=== PATIENT | male | born 1995 | race African-American/Black ===

== ENCOUNTER 2017-09-08 09:48 | Emergency (ER) | payer SELFPAY ==
[2017-09-08] MEDS ORDERED: Ondansetron ODT TAB* 4 MG SL ONE (10:10)
--- NOTE | 2017-09-08 10:49 | ED ---
Throat Pain/Nasal Congestion - HPI Summary HPI Summary: Patient presents to the ED with CC of feeling like something is in his throat and unless he continues to swallow consistently, feels lightheaded and will vomit. Denies vomiting from his stomach, but endorses regurgitation of saliva from the throat, nausea and sweating. Denies eating anything or food stuck in throat. Last PO intake last evening. Symptoms began 1 hour ago. Denies health problems. Has never had this before. Denies fevers or chills. Has been otherwise feeling well. Denies weakness or abdominal pain. Denies urinary symptoms, ESCOTO. - History of Current Complaint Chief Complaint: EDNauseaVomitDiarrh Time Seen by Provider: 09/08/17 09:50 Hx Obtained From: Patient Onset/Duration: Sudden Onset Associated Signs And Symptoms: Positive: Negative - Epiglottits Risk Factors Epiglottis Risk Factors: Negative - Allergies/Home Medications Allergies/Adverse Reactions: Allergies Allergy/AdvReac Type Severity Reaction Status Date / Time Peanut Oil Allergy Itching Verified 09/08/17 09:51 Shellfish Allergy Allergy Swelling Verified 09/08/17 09:51 Of Face,Lips,& Throat PMH/Surg Hx/FS Hx/Imm Hx Previously Healthy: Yes - Immunization History Hx Pertussis Vaccination: No Immunizations Up to Date: Unable to Obtain/Confirm Infectious Disease History: No Infectious Disease History: Denies: Traveled Outside the [place] in Last 30 Days - Social History Occupation: Unemployed Lives: With Family Alcohol Use: None Hx Substance Use: No Substance Use Type: Reports: None Smoking Status (MU): Smoker, Current Status Unknown Review of Systems Constitutional: Negative Negative: Fever, Chills, Fatigue Eyes: Negative Positive: Other - feeling as something is in his throat (not FB) Cardiovascular: Negative Genitourinary: Negative Positive: no symptoms reported, see HPI Musculoskeletal: Negative Neurological: Negative All Other Systems Reviewed And Are Negative: Yes Physical Exam Triage Information Reviewed: Yes Vital Signs On Initial Exam: Initial Vitals Temp Pulse Resp BP Pulse Ox 99.4 F 113 16 146/71 100 09/08/17 09:49 09/08/17 09:49 09/08/17 09:49 09/08/17 09:49 09/08/17 09:49 Vital Signs Reviewed: Yes Appearance: Positive: Well-Appearing, Well-Nourished Skin: Positive: Warm, Skin Color Reflects Adequate Perfusion Head/Face: Positive: Normal Head/Face Inspection Eyes: Positive: EOMI, KIM, Conjunctiva Clear ENT: Positive: Pharynx normal. Negative: Pharyngeal erythema, TM bulging, Tonsillar swelling, Tonsillar exudate, Hoarse voice, Dental tenderness Neck: Positive: Supple, No Lymphadenopathy Respiratory/Lung Sounds: Positive: Clear to Auscultation, Breath Sounds Present Cardiovascular: Positive: RRR, Pulses are Symmetrical in both Upper and Lower Extremities Musculoskeletal: Positive: Strength/ROM Intact Neurological: Positive: Normal, Sensory/Motor Intact, Alert, Oriented to Person Place, Time, Speech Normal Psychiatric: Positive: Normal, Affect/Mood Appropriate - [place] Coma Scale Coma Scale Total: 15 Diagnostics - Vital Signs Vital Signs Temp Pulse Resp BP Pulse Ox 09/08/17 09:49 99.4 F 113 16 146/71 100 - Laboratory Lab Statement: Any lab studies that have been ordered have been reviewed, and results considered in the medical decision making process. EENT Course/Dx - Course Course Of Treatment: feeling as something is in his throat (not FB). Denies swallowing anything recently. States something "shifted" in his throat about 1 hour ago, and started to have to swallow frequently or feelings of weakness and nausea would arise. This has never happened before. During the course of treatment, patient is sent to xray chest, xray neck and EKG completed. EKG shows sinus tachy at 102. Probable left atrial and ventricular enlargement. IMPRESSION: NO EVIDENCE FOR ACTIVE CARDIOPULMONARY DISEASE. IMPRESSION: NO RADIOPAQUE FOREIGN BODY IS SEEN. Patient is feeling improved and requesting discharge. He is safe for discharge and I have advised he follow up with his PCP regarding his high blood pressure and LVH. - Diagnoses Provider Diagnoses: Foreign body in throat Discharge - Discharge Plan Condition: Stable Disposition: HOME Referrals: No Primary Care Phys,NOPCP [Primary Care Provider] - Additional Instructions: As discussed, establish care with a PCP in the area to evaluate the heart Symptoms from today should subside slowly If any symptoms become worse, or you feel you are unable to swallow - return to the ED. Slowly continue to drink fluids throughout the day and eating something solid like crackers will help. Your EKG, chest xray and neck xray all appear to be normal
--- NOTE | 2017-09-08 11:00 | RAD ---
INDICATION: Chest pain. COMPARISON: There are no prior studies available for comparison. TECHNIQUE: Dual-energy PA and lateral views of the chest were obtained. FINDINGS: The heart is within normal limits in size. Mediastinal and hilar contours appear within normal limits. The lungs are underinflated and clear. No pleural effusion or pneumothorax is seen. There is a mild dorsal lumbar scoliosis convex toward the left in the upper dorsal region, toward the right in the lordosis region and toward the left in the lumbar region. IMPRESSION: NO EVIDENCE FOR ACTIVE CARDIOPULMONARY DISEASE.
--- NOTE | 2017-09-08 11:01 | RAD ---
INDICATION: Foreign body. COMPARISON: There are no prior studies available for comparison. TECHNIQUE: AP and lateral images of the soft tissue of the neck were obtained. FINDINGS: The epiglottis and aryepiglottic folds appear to be within normal limits. The retropharyngeal soft tissues appear normal. The airway appears patent. No radiopaque foreign body is seen. IMPRESSION: NO RADIOPAQUE FOREIGN BODY IS SEEN.
[2017-09-08 11:16] VITALS: BP 120/63
== END 2017-09-08 11:16 | disposition home or self-care (01) ==
LOC: ED 09:48
DX: R09.89 Other specified symptoms and signs involving the circulatory and respiratory systems (principal); T17.298A Other foreign object in pharynx causing other injury, initial encounter; F17.210 Nicotine dependence, cigarettes, uncomplicated; X58.XXXA Exposure to other specified factors, initial encounter; Y93.9 Activity, unspecified; Y92.9 Unspecified place or not applicable
CPT/HCPCS: 70360; 71020; 93005; 99282; A9270-GY

== ENCOUNTER 2018-01-13 03:51 | Emergency (ER) | payer SELFPAY ==
[2018-01-13] MEDS ORDERED: NS 0.9% 1000 ML* 1,000 ML IV ONE (04:11)
[2018-01-13] MEDS ORDERED: levETIRAcetam IV* 1,000 MG in NS 0.9% 100 ML* 100 ML IVPB ONE (04:11)
[2018-01-13 04:31] LABS: ABS Basophils 0 10^3/ul (0-0.2); ABS Eosinophils 0.2 10^3/ul (0-0.6); ABS Lymphocytes 2.4 10^3/ul (1.0-4.8); ABS Monocytes 0.7 10^3/ul (0-0.8); ABS Neutrophils 3.9 10^3/ul (1.5-7.7); ABS Nucleated RBC 0 10^3/ul; Eosinophil % 3.3 % (0-6); Hematocrit 41 % (42-52); Hemoglobin 13.9 g/dl (14.0-18.0); Lymphocyte % 32.7 % (25-47); Mean Corpuscular HGB Conc 34 g/dl (31-36); Mean Corpuscular Hemoglobin 31 pg (27-31); Mean Corpuscular Volume 92 fL (80-94); Mean Platelet Volume 8.2 um3 (7.4-10.4); Nucleated Red Blood Cells % 0; Platelet Count 260 10^3/ul (150-450); Red Cell Distribution Width 14 % (10.5-15); White Blood Count 7.3 10^3/ul (3.5-10.8)
[2018-01-13 04:40] LABS: EGFR Non-African American 78.9 (>60)
[2018-01-13 06:34] LABS: Urine Appearance Clear; Urine Blood Negative (Negative); Urine Color Yellow; Urine Ketones Trace (Negative); Urine Protein 1+(30 mg/dL) (Negative); Urine Specific Gravity 1.015 (1.010-1.030); Urine Urobilinogen Negative (Negative)
[2018-01-13 06:41] VITALS: BP 110/68
--- NOTE | 2018-01-13 06:55 | ED ---
Carmella Gonzalez Gabriel, scribed for Falguni Garrett MD on 01/13/18 at 0414 . 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 The patient rates the pain 0/10 in severity. Patient reports biting of tongue. Patient denies incontinence and decreased sleep. A month ago he had a seizure and was admitted for 2 days but not given seizure medication. The pt is unsure who called the ambulance. - History of Current Complaint Chief Complaint: EDSeizure Stated Complaint: SEIZURE Time Seen by Provider: 01/13/18 03:55 Hx Obtained From: Patient Onset/Duration: Still Present Timing: Constant Onset Severity: Mild Current Severity: None Seizure Severity: Mild Pain Intensity: 0 Pain Scale Used: 0-10 Numeric Syncope Context: Witnessed Associated Signs and Symptoms: Positive: Negative - incontinence, decreased sleep, - Allergy/Home Medications Allergies/Adverse Reactions: Allergies Allergy/AdvReac Type Severity Reaction Status Date / Time MS Peanut Oil [Peanut Oil] Allergy Itching Verified 09/08/17 09:51 MS Shellfish Allergy Allergy Swelling Verified 09/08/17 09:51 [Shellfish Allergy] Of Face,Lips,& Throat PMH/Surg Hx/FS Hx/Imm Hx Cardiovascular History: Denies: Hx Myocardial Infarction, Hx Pacemaker/ICD Respiratory History: Denies: Hx Chronic Obstructive Pulmonary Disease (COPD), Hx Cystic Fibrosis Opthamlomology History: Denies: Hx Cataracts EENT History: Denies: Hx Deafness Neurological History: Reports: Hx Seizures Infectious Disease History: No Infectious Disease History: Denies: Traveled Outside the [place] in Last 30 Days - Family History Known Family History: Positive: Hypertension Negative: Respiratory Disease, Seizure Disorder - Social History Lives: With Family Alcohol Use: None Hx Substance Use: No Substance Use Type: Reports: None Smoking Status (MU): Smoker, Current Status Unknown Review of Systems Constitutional: Negative - decreased sleep, Positive: Other - biting of tongue Gastrointestinal: Negative - incontinence, Neurological: Other - Seizure activity All Other Systems Reviewed And Are Negative: Yes Physical Exam - Summary Physical Exam Summary: Pt was uncooperative for the exam VITAL SIGNS: Reviewed. GENERAL: Patient is a well-developed and nourished male who is lying comfortable in the stretcher. Patient is not in any acute respiratory distress. HEAD AND FACE: No signs of trauma. No ecchymosis, hematomas or skull depressions. No sinus tenderness. EYES: PERRLA, EOMI x 2, No injected conjunctiva, no nystagmus. EARS: Hearing grossly intact. Ear canals and tympanic membranes are within normal limits. MOUTH: there is a 2cm lac of the right side of the tongue NECK: Supple, trachea is midline, no adenopathy, no JVD, no carotid bruit, no c- spine tenderness, neck with full ROM. CHEST: Symmetric, no tenderness at palpation LUNGS: Clear to auscultation bilaterally. No wheezing or crackles. CVS: Regular rate and rhythm, S1 and S2 present, no murmurs or gallops appreciated. ABDOMEN: Soft, non-tender. No signs of distention. No rebound no guarding, and no masses palpated. Bowel sounds are normal. EXTREMITIES: FROM in all major joints, no edema, no cyanosis or clubbing. NEURO: Alert and oriented x 3. No acute neurological deficits. Speech is normal and follows commands. SKIN: Dry and warm GCS 15 Triage Information Reviewed: Yes Vital Signs On Initial Exam: Initial Vitals Temp Pulse Resp BP Pulse Ox 98.5 F 78 20 121/71 98 01/13/18 03:52 01/13/18 03:52 01/13/18 03:52 01/13/18 03:52 01/13/18 03:52 Vital Signs Reviewed: Yes Diagnostics - Vital Signs Vital Signs Temp Pulse Resp BP Pulse Ox 01/13/18 03:52 98.5 F 78 20 121/71 98 - Laboratory Result Diagrams: 01/13/18 04:02 01/13/18 04:02 Lab Statement: Any lab studies that have been ordered have been reviewed, and results considered in the medical decision making process. - CT CT Head CT Interpretation Completed By: Radiologist - normal brain, no acute intracranial abnormality. No hemorrhage. No visible infarct or mass. Osseous structures are intact. ED physician has reviewed this radiology report. - EKG 0405 Cardiac Rate: NL EKG Rhythm: Sinus Rhythm - at 84 bpm EKG Interpretation: Normal axis. Normal interval. No ischemic changes Re-Evaluation - Re-Evaluation First Eval Re-Evaluation Time: 06:01 Comment: I discussed all the test results with the patient and instructed him he is not to drive until cleared by neurology. 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 The patient rates the pain 0/10 in severity. Patient reports biting of tongue. Patient denies incontinence and decreased sleep. A month ago he had a seizure and was admitted for 2 days but not given seizure medication. The pt is unsure who called the ambulance. An EKG reveals nsr 84 bpm Normal axis. Normal interval. No ischemic changes. CT Head reveals, per radiologist, normal brain, no acute intracranial abnormality. No hemorrhage. No visible infarct or mass. Osseous structures are intact. Test results with no significant abnormalities. In the ED course the patient was given keppra and IV fluids. Dx Seizure. Patient will be discharged with prescription for Keppra and follow up from Dr. Castañeda. The patient is agreeable with this plan. - Diagnoses Provider Diagnoses: Seizure Discharge - Sign-Out/Discharge Documenting (check all that apply): Discharge - Discharge Plan Condition: Stable Disposition: HOME Prescriptions: levETIRAcetam TAB* [Keppra TAB*] 500 mg PO BID #60 tab Patient Education Materials: Epilepsy (ED) Referrals: John Paul Castañeda MD [Medical Doctor] - As Soon As Possible Additional Instructions: Take Keprra as directed, no driving or operation machinery until cleared by neurology. RETURN TO THE EMERGENCY DEPARTMENT FOR CHANGING OR WORSENING SYMPTOMS. The documentation as recorded by the Carmella perkins Gabriel accurately reflects the service I personally performed and the decisions made by me, Falguni Garrett MD.
--- NOTE | 2018-01-13 07:31 | RAD ---
INDICATION: Seizure. COMPARISON: Comparison is made with prior chest x-ray study from September 08, 2017. TECHNIQUE: A portable view of the chest was obtained. FINDINGS: Cardiac and mediastinal contours appear to be within normal limits. The lungs are clear. No pleural effusion is seen. IMPRESSION: NO EVIDENCE FOR ACUTE DISEASE.
--- NOTE | 2018-01-13 07:33 | RAD ---
INDICATION: Seizure. COMPARISON: There are no prior studies available for comparison. TECHNIQUE: Contiguous axial sections of the brain were obtained from the skull base to the vertex without contrast. FINDINGS: The ventricles, cisterns and sulci are within normal limits. No significant focal abnormality or mass effect is seen. There is no evidence for hemorrhage. No significant focal osseous abnormality is seen. The visualized portion of the paranasal sinuses and mastoid air cells appear clear. IMPRESSION: NO EVIDENCE FOR ACUTE INTRACRANIAL ABNORMALITY.
== END 2018-01-13 06:49 | disposition home or self-care (01) ==
LOC: ED 03:51
DX: R56.9 Unspecified convulsions (principal)
CPT/HCPCS: 36415; 70450; 71045; 80053; 80307; 80320; 81003; 81015; 83735; 85025; 87086; 93005; 96365; 99285; G0480

== ENCOUNTER 2018-01-22 08:04 | Emergency (ER) | payer SELFPAY ==
[2018-01-22] MEDS ORDERED: NS 0.9% 1000 ML* 1,000 ML IV ONE (08:12)
[2018-01-22 08:41] LABS: ABS Basophils 0.1 10^3/ul (0-0.2); ABS Eosinophils 0.3 10^3/ul (0-0.6); ABS Lymphocytes 1.7 10^3/ul (1.0-4.8); ABS Monocytes 0.4 10^3/ul (0-0.8); ABS Neutrophils 2.7 10^3/ul (1.5-7.7); ABS Nucleated RBC 0 10^3/ul; Eosinophil % 5.6 % (0-6); Hematocrit 44 % (42-52); Hemoglobin 15.1 g/dl (14.0-18.0); Lymphocyte % 32.8 % (25-47); Mean Corpuscular HGB Conc 34 g/dl (31-36); Mean Corpuscular Hemoglobin 31 pg (27-31); Mean Corpuscular Volume 91 fL (80-94); Mean Platelet Volume 7.9 um3 (7.4-10.4); Nucleated Red Blood Cells % 0; Platelet Count 290 10^3/ul (150-450); Red Blood Count 4.85 10^6/ul (4.0-5.4); Red Cell Distribution Width 14 % (10.5-15); White Blood Count 5.1 10^3/ul (3.5-10.8)
[2018-01-22 08:56] LABS: EGFR Non-African American 91.8 (>60)
[2018-01-22 11:31] LABS: Urine Appearance Clear; Urine Blood Negative (Negative); Urine Color Yellow; Urine Ketones Negative (Negative); Urine Protein Negative (Negative); Urine Specific Gravity 1.015 (1.010-1.030); Urine Urobilinogen Negative (Negative)
[2018-01-22 11:56] VITALS: BP 130/79
--- NOTE | 2018-01-22 16:31 | ED ---
Ortega Gonzalez Angela, scribed for Gage Esquivel MD on 01/22/18 at 0813 . Neurological HPI - HPI Summary HPI Summary: This pt is a 22 y/o male presenting to [facility] via EMS for a possible seizure. EMS reports the pt was found on the ground confused. Pt is currently awake. He is unable to answer questions correctly. Per EMS pt has hx of seizures. He is currently on Keppra. HPI IS LIMITED DUE TO LEVEL 5 CAVEAT - pt is in postictal state. - History of Current Complaint Stated Complaint: SEIZURES Hx Obtained From: EMS Hx From Patient Unobtainable Due To: Other - level 5 caveat - pt is in postictal state Onset/Duration: Sudden Onset, Resolved Timing: Sudden Onset Current Severity: Moderate Number of Seizures: 1 - per EMS Neurological Deficit Location: Generalized Syncope Context: Unwitnessed Aggravating: Nothing Alleviating: Nothing Associated Signs and Symptoms: Positive: Seizure Related Hx: Seizure - Allergy/Home Medications Allergies/Adverse Reactions: Allergies Allergy/AdvReac Type Severity Reaction Status Date / Time shellfish derived Allergy Severe Swelling Verified 01/22/18 08:12 Of Face,Lips,& Throat peanut oil Allergy Itching Verified 01/22/18 08:12 PMH/Surg Hx/FS Hx/Imm Hx Endocrine/Hematology History: Denies: Hx Diabetes Cardiovascular History: Denies: Hx Hypertension, Hx Myocardial Infarction, Hx Pacemaker/ICD Respiratory History: Denies: Hx Chronic Obstructive Pulmonary Disease (COPD), Hx Cystic Fibrosis Sensory History: Denies: Hx Cataracts, Hx Deafness Opthamlomology History: Denies: Hx Cataracts Neurological History: Reports: Hx Seizures - Family History Known Family History: Positive: Hypertension Negative: Respiratory Disease, Seizure Disorder - Social History Alcohol Use: None Hx Substance Use: No Substance Use Type: Reports: None Smoking Status (MU): Smoker, Current Status Unknown Review of Systems - ROS Summary Review of Systems Summary: ROS IS LIMITED DUE TO LEVEL 5 CAVEAT - pt is in postictal state. Negative: Fever, Chills Eyes: Negative ENT: Negative Neurological: Other - POS: seizure All Other Systems Reviewed And Are Negative: No Physical Exam - Summary Physical Exam Summary: VITAL SIGNS: Reviewed. GENERAL: Patient is a well-developed and nourished male who is lying comfortable in the stretcher. Patient is not in any acute respiratory distress. HEAD AND FACE: No signs of trauma. No ecchymosis, hematomas or skull depressions. No sinus tenderness. EYES: PERRLA, EOMI x 2, No injected conjunctiva, no nystagmus. No photophobia. EARS: Hearing grossly intact. Ear canals and tympanic membranes are within normal limits. MOUTH: Oropharynx within normal limits. NECK: Supple, trachea is midline, no adenopathy, no JVD, no carotid bruit, no c- spine tenderness, neck with full ROM. No meningeal signs, no Kernig's or brudzinskis signs. CHEST: Symmetric, no tenderness at palpation LUNGS: Clear to auscultation bilaterally. No wheezing or crackles. CVS: Regular rate and rhythm, S1 and S2 present, no murmurs or gallops appreciated. ABDOMEN: Soft, non-tender. No signs of distention. No rebound no guarding, and no masses palpated. Bowel sounds are normal. EXTREMITIES: FROM in all major joints, no edema, no cyanosis or clubbing. NEURO: Alert but not oriented. Pt is in a postictal state. No acute neurological deficits. Speech is normal and follows commands. SKIN: Dry and warm Triage Information Reviewed: Yes Vital Signs On Initial Exam: Initial Vitals BP 135/83 01/22/18 08:11 Vital Signs Reviewed: Yes Completion Of Physical Exam Limited Due To: Level 5 - pt is in postictal state Diagnostics - Vital Signs Vital Signs Temp Pulse Resp BP Pulse Ox 01/22/18 11:55 99.0 F 84 16 130/79 100 01/22/18 11:30 74 26 130/79 99 01/22/18 11:00 83 116/90 99 01/22/18 10:30 80 123/78 99 01/22/18 10:00 80 28 118/73 99 01/22/18 09:30 75 23 121/66 99 01/22/18 09:00 85 26 118/82 99 01/22/18 08:33 124/78 99 01/22/18 08:30 23 01/22/18 08:27 99.1 F 101 16 135/83 100 01/22/18 08:12 88 17 98 01/22/18 08:11 135/83 - Laboratory Lab Results: Lab Results 01/22/18 01/22/18 01/22/18 Range/Units 08:34 08:34 08:34 WBC 5.1 (3.5-10.8) 10^3/ul RBC 4.85 (4.0-5.4) 10^6/ul Hgb 15.1 (14.0-18.0) g/dl Hct 44 (42-52) % MCV 91 (80-94) fL MCH 31 (27-31) pg MCHC 34 (31-36) g/dl RDW 14 (10.5-15) % Plt Count 290 (150-450) 10^3/ul MPV 7.9 (7.4-10.4) um3 Neut % (Auto) 52.9 (38-83) % Lymph % (Auto) 32.8 (25-47) % [place] % (Auto) 7.5 H (0-7) % Eos % (Auto) 5.6 (0-6) % Baso % (Auto) 1.2 (0-2) % Absolute Neuts (auto) 2.7 (1.5-7.7) 10^3/ul Absolute Lymphs (auto) 1.7 (1.0-4.8) 10^3/ul Absolute Monos (auto) 0.4 (0-0.8) 10^3/ul Absolute Eos (auto) 0.3 (0-0.6) 10^3/ul Absolute Basos (auto) 0.1 (0-0.2) 10^3/ul Absolute Nucleated RBC 0 10^3/ul Nucleated RBC % 0 Sodium 137 L (139-145) mmol/L Potassium 4.3 (3.5-5.0) mmol/L Chloride 104 (101-111) mmol/L Carbon Dioxide 24 (22-32) mmol/L Anion Gap 9 (2-11) mmol/L BUN 13 (6-24) mg/dL Creatinine 1.00 (0.67-1.17) mg/dL Est GFR ( Amer) 118.1 (>60) Est GFR (Non-Af Amer) 91.8 (>60) BUN/Creatinine Ratio 13.0 (8-20) Glucose 88 (70-100) mg/dL Lactic Acid 4.1 H* (0.5-2.0) mmol/L Calcium 10.1 (8.6-10.3) mg/dL Magnesium 2.3 (1.9-2.7) mg/dL Total Bilirubin 0.40 (0.2-1.0) mg/dL AST 32 (13-39) U/L ALT 15 (7-52) U/L Alkaline Phosphatase 77 (34-104) U/L Total Protein 8.1 (6.4-8.9) g/dL Albumin 5.0 (3.2-5.2) g/dL Globulin 3.1 (2-4) g/dL Albumin/Globulin Ratio 1.6 (1-3) TSH 0.78 (0.34-5.60) mcIU/mL Urine Color Urine Appearance Urine pH (5-9) Ur Specific [place] (1.010-1.030) Urine Protein (Negative) Urine Ketones (Negative) Urine Blood (Negative) Urine Nitrate (Negative) Urine Bilirubin (Negative) Urine Urobilinogen (Negative) Ur Leukocyte Esterase (Negative) Urine Glucose (Negative) Urine Opiates Screen (None Detect) Ur Barbiturates Screen (None Detect) Ur Phencyclidine Scrn (None Detect) Ur Amphetamines Screen (None Detect) U Benzodiazepines Scrn (None Detect) Urine Cocaine Screen (None Detect) U Cannabinoids Screen (None Detect) Serum Alcohol < 10 (<10) mg/dL 01/22/18 01/22/18 Range/Units 11:01 11:01 WBC (3.5-10.8) 10^3/ul RBC (4.0-5.4) 10^6/ul Hgb (14.0-18.0) g/dl Hct (42-52) % MCV (80-94) fL MCH (27-31) pg MCHC (31-36) g/dl RDW (10.5-15) % Plt Count (150-450) 10^3/ul MPV (7.4-10.4) um3 Neut % (Auto) (38-83) % Lymph % (Auto) (25-47) % [place] % (Auto) (0-7) % Eos % (Auto) (0-6) % Baso % (Auto) (0-2) % Absolute Neuts (auto) (1.5-7.7) 10^3/ul Absolute Lymphs (auto) (1.0-4.8) 10^3/ul Absolute Monos (auto) (0-0.8) 10^3/ul Absolute Eos (auto) (0-0.6) 10^3/ul Absolute Basos (auto) (0-0.2) 10^3/ul Absolute Nucleated RBC 10^3/ul Nucleated RBC % Sodium (139-145) mmol/L Potassium (3.5-5.0) mmol/L Chloride (101-111) mmol/L Carbon Dioxide (22-32) mmol/L Anion Gap (2-11) mmol/L BUN (6-24) mg/dL Creatinine (0.67-1.17) mg/dL Est GFR ( Amer) (>60) Est GFR (Non-Af Amer) (>60) BUN/Creatinine Ratio (8-20) Glucose (70-100) mg/dL Lactic Acid (0.5-2.0) mmol/L Calcium (8.6-10.3) mg/dL Magnesium (1.9-2.7) mg/dL Total Bilirubin (0.2-1.0) mg/dL AST (13-39) U/L ALT (7-52) U/L Alkaline Phosphatase (34-104) U/L Total Protein (6.4-8.9) g/dL Albumin (3.2-5.2) g/dL Globulin (2-4) g/dL Albumin/Globulin Ratio (1-3) TSH (0.34-5.60) mcIU/mL Urine Color Yellow Urine Appearance Clear Urine pH 6.0 (5-9) Ur Specific [place] 1.015 (1.010-1.030) Urine Protein Negative (Negative) Urine Ketones Negative (Negative) Urine Blood Negative (Negative) Urine Nitrate Negative (Negative) Urine Bilirubin Negative (Negative) Urine Urobilinogen Negative (Negative) Ur Leukocyte Esterase Negative (Negative) Urine Glucose Negative (Negative) Urine Opiates Screen None detected (None Detect) Ur Barbiturates Screen None detected (None Detect) Ur Phencyclidine Scrn None detected (None Detect) Ur Amphetamines Screen Presumptive positive A (None Detect) U Benzodiazepines Scrn None detected (None Detect) Urine Cocaine Screen None detected (None Detect) U Cannabinoids Screen Presumptive positive A (None Detect) Serum Alcohol (<10) mg/dL Result Diagrams: 01/22/18 08:34 18 08:34 Lab Statement: Any lab studies that have been ordered have been reviewed, and results considered in the medical decision making process. - EKG 08:12 Cardiac Rate: NL EKG Rhythm: Sinus Rhythm - at 91 bpm EKG Interpretation: No ST elevations. Re-Evaluation - Re-Evaluation First Eval Re-Evaluation Time: 11:18 Change: Improved Comment: Pt is back to baseline. He is alert and oriented x3. He reports he is not taking Keppra because he can't afford it. Course/Dx - Course Assessment/Plan: This pt is a 22 y/o male presenting to [facility] via EMS for a possible seizure. EMS reports the pt was found on the ground confused. Pt is currently awake. He is unable to answer questions correctly. Per EMS pt has hx of seizures. He is currently on Keppra. HPI IS LIMITED DUE TO LEVEL 5 CAVEAT - pt is in postictal state. Test results without any significant abnormalities except for lactic acid of 4.1. Urinalysis is negative for UTI. Serum alcohol is negative. In the ED course the pt was given IV fluids. Declined keppra at this time. On re-evaluation, pt is back to baseline. He is alert and oriented x3. Pt reports he has not been taking Keppra because he cant afford it. Pt was given a prescription for Keppra through [facility]. Therefore he will be discharged to home and is instructed to establish a primary care provider and follow up with his PCP. He is instructed to return to the ED for any worsening or new symptoms. Pt is hemodynamically stable, alert and oriented x3. - Diagnoses Provider Diagnoses: Seizure Discharge - Sign-Out/Discharge Documenting (check all that apply): Discharge - discharge to home - Discharge Plan Condition: Stable Disposition: HOME Prescriptions: levETIRAcetam TAB* [Keppra TAB*] 500 mg PO BID #60 tab Patient Education Materials: Recurrent Seizures in Adults (ED) Referrals: [facility] [Outside] No Primary Care Phys,NOPCP [Primary Care Provider] - Additional Instructions: Please establish a primary care provider and follow up with your primary. RETURN TO THE ED FOR ANY NEW OR WORSENING SYMPTOMS. - Billing Disposition and Condition Condition: STABLE Disposition: HOME The documentation as recorded by the Ortega perkins Angela accurately reflects the service I personally performed and the decisions made by me, Gage Esquivel MD.
--- NOTE | 2018-01-22 18:58 | RAD ---
Indication: Witnessed seizure. Comparison: January 13, 2018 CT Technique: [employer] [place] 1.5 Lisa [id number] with GEM suite. MRI brain without and with contrast. 15 mL ProHance administered IV. Report: Diffusion series is negative for acute or subacute ischemia. Susceptibility series is negative for stigmata of hemosiderin deposition to indicate previous hemorrhage. Unremarkable cerebral sulci, ventricles, and basal cisterns. Normal patterns of signal intensity throughout the cerebrum and posterior fossa. Symmetric appearance of the gyri at the medial temporal lobes. No intra or extra-axial lesions, fluid collections, or abnormal foci of enhancement evident. Unremarkable orbital contents. Preserved major intracranial flow-voids. No calvarial or skull base lesions evident. 0.9 cm mucous retention cyst or polyp at the posterior inferior RIGHT maxillary sinus. Negative for paranasal sinus fluid levels. Clear mastoid air spaces. IMPRESSION: Negative unenhanced and contrast-enhanced MRI of the brain.
== END 2018-01-22 11:55 | disposition home or self-care (01) ==
LOC: ED 08:04
DX: R56.9 Unspecified convulsions (principal); Z72.0 Tobacco use
CPT/HCPCS: 36415; 70553; 80053; 80177; 80307; 80320; 81003; 83605; 83735; 84443; 85025; 93005; 95819; 96360; 99283; A9579; G0480

== ENCOUNTER 2018-01-22 13:50 | Observation (INO) | payer SELFPAY ==
[2018-01-22] MEDS ORDERED: NS 0.9% 100 ML* 100 ML ONE (14:04)
[2018-01-22] MEDS ORDERED: NS 0.9% 1000 ML*IV.FLUID IV ONE (14:12)
[2018-01-22] MEDS ORDERED: levETIRAcetam IV* 1,000 MG in NS 0.9% 100 ML* 100 ML IVPB ONE (14:30)
[2018-01-22] MEDS ORDERED: Acetaminophen TAB* 325 MG PO PRN (15:55)
[2018-01-22 17:11] LABS: EGFR Non-African American 122.3 (>60)
--- NOTE | 2018-01-22 17:44 | ED ---
Ortega Gonzalez Angela, scribed for Gage Esquivel MD on 01/22/18 at 1407 . Neurological HPI - HPI Summary HPI Summary: This pt is a 22 y/o male presenting to [facility] via EMS for the second time today for another seizure. The time of seizure is unknown. Per EMS his seizure was unwitnessed. Pt has not been taking his Keppra medications. Pt was just discharged today with a prescription (urgent Rx) for Keppra. HPI IS LIMITED DUE TO LEVEL 5 CAVEAT - pt is in postictal state. - History of Current Complaint Stated Complaint: SEIZURES Time Seen by Provider: 01/22/18 13:58 Hx Obtained From: EMS Hx From Patient Unobtainable Due To: Other - level 5 caveat - pt is in postictal state Onset/Duration: Sudden Onset, Still Present Timing: Sudden Onset Current Severity: Moderate Character: Confusion Syncope Context: Unwitnessed Aggravating: Nothing Alleviating: Nothing Associated Signs and Symptoms: Positive: Seizure Related Hx: Seizure - Allergy/Home Medications Allergies/Adverse Reactions: Allergies Allergy/AdvReac Type Severity Reaction Status Date / Time shellfish derived Allergy Severe Swelling Verified 01/22/18 08:12 Of Face,Lips,& Throat peanut oil Allergy Itching Verified 01/22/18 08:12 PMH/Surg Hx/FS Hx/Imm Hx Cardiovascular History: Denies: Hx Myocardial Infarction, Hx Pacemaker/ICD Respiratory History: Denies: Hx Chronic Obstructive Pulmonary Disease (COPD), Hx Cystic Fibrosis Sensory History: Denies: Hx Cataracts, Hx Deafness Opthamlomology History: Denies: Hx Cataracts Neurological History: Reports: Hx Seizures - Family History Known Family History: Positive: Hypertension Negative: Respiratory Disease, Seizure Disorder - Social History Alcohol Use: None Hx Substance Use: No Substance Use Type: Reports: None Smoking Status (MU): Smoker, Current Status Unknown Review of Systems - ROS Summary Review of Systems Summary: ROS IS LIMITED DUE TO LEVEL 5 CAVEAT - pt is in postictal state Negative: Fever, Chills Neurological: Other - POS: seizure All Other Systems Reviewed And Are Negative: No Physical Exam - Summary Physical Exam Summary: VITAL SIGNS: Reviewed. GENERAL: Patient is a well-developed and nourished male who is lying comfortable in the stretcher. Patient is not in any acute respiratory distress. HEAD AND FACE: No signs of trauma. No ecchymosis, hematomas or skull depressions. No sinus tenderness. EYES: PERRLA, EOMI x 2, No injected conjunctiva, no nystagmus. EARS: Hearing grossly intact. Ear canals and tympanic membranes are within normal limits. MOUTH: Oropharynx within normal limits. NECK: Supple, trachea is midline, no adenopathy, no JVD, no carotid bruit, no c- spine tenderness, neck with full ROM. CHEST: Symmetric, no tenderness at palpation LUNGS: Clear to auscultation bilaterally. No wheezing or crackles. CVS: Regular rate and rhythm, S1 and S2 present, no murmurs or gallops appreciated. ABDOMEN: Soft, non-tender. No signs of distention. No rebound no guarding, and no masses palpated. Bowel sounds are normal. EXTREMITIES: FROM in all major joints, no edema, no cyanosis or clubbing. NEURO: Alert and oriented x 3. No acute neurological deficits. Speech is normal and follows commands. SKIN: Dry and warm Triage Information Reviewed: Yes Vital Signs Reviewed: Yes Course/Dx - Course Assessment/Plan: This pt is a 22 y/o male presenting to [facility] via EMS for the second time today for another seizure. The time of seizure is unknown. Per EMS his seizure was unwitnessed. Pt has not been taking his Keppra medications. Pt was just discharged today with a prescription (urgent Rx) for Keppra. HPI IS LIMITED DUE TO LEVEL 5 CAVEAT - pt is in postictal state. Test results without any significant abnormalities except for lactic acid of 4.1. Urinalysis is negative for UTI. Urine toxicology is positive for amphetamines and marijuana. This is the pts second seizure today. Initially when the pt came in the first time to the ED today he declined Keppra and after his second seizure now the pt was given Keppra 1,000 mg. Because of the pts second seizure today, I discussed the case with Dr. Gillette, neurologist, who recommends admission for the pt. Pt had a head CT on 01/13/18 that resulted negative, therefore there is no need to repeat the head CT today. I discussed test results and findings with Dr. Lunsford, hospitalist, and he accepted the pt for admission. Pt is hemodynamically stable, alert and oriented x3. - Diagnoses Provider Diagnoses: Seizure - Physician Notifications Discussed Care Of Patient With: Heriberto Gillette Time Discussed With Above Provider: 15:17 Instructed by Provider To: Other - I discussed pt care with Dr. Gillette, neurologist, who recommends admission. [15:21] I discussed with Dr. Lunsford, hospitalist, who has agreed to admit the pt. Discharge - Sign-Out/Discharge Documenting (check all that apply): Discharge - admit to [facility] - Discharge Plan Condition: Stable Disposition: ADMITTED TO [facility] Referrals: No Primary Care Phys,NOPCP [Primary Care Provider] - The documentation as recorded by the Ortega perkins Angela accurately reflects the service I personally performed and the decisions made by me, Gage Esquivel MD.
--- NOTE | 2018-01-22 18:06 | HP ---
ADMISSION HISTORY AND PHYSICAL: DATE OF ADMISSION: 01/22/18 PRIMARY CARE PROVIDER: Unknown name, somebody in [place], his family can help him get the name and number tomorrow. HEALTHCARE PROXY: Does not want to identify anybody today. CODE STATUS: Full. SOURCE OF INFORMATION: History obtained from review of past medical records, discussion with Dr. Esquivel in the emergency room, and interview of the patient. RELIABILITY: From records is good, from the patient is poor. The patient is a difficult historian. CHIEF COMPLAINT: Seizure. HISTORY OF PRESENT ILLNESS: This is a 22-year-old man with no significant past medical history, previously lived in [place] until approximately 01/12/18. He notes he had a seizure while sleeping, noted by his girlfriend for which he went to the emergency room in [place]. He was discharged from the emergency room without any new medications. He moved to [place] 1 or 2 days later and had a seizure on 01/13/18, again while asleep and presented to [facility]. He was noted to have bit his tongue. He was prescribed Keppra, however, never filled it as he did not have insurance. He notes that he did not attempt to fill it. He does not know what the co-pay would be without insurance. Today, again while asleep, he had a seizure noted by his girlfriend. He notes that he was not told how long it lasted or why she thought it was a seizure. The patient is very vague about these details; however, he did note that his girlfriend heard a thump, found him on the floor after having fallen out of bed. The patient was very confused out of the seizure and only remembered waking up in the emergency room today. Again, he was prescribed Keppra and discharged. However, after going to bed again, had second seizure in the day, which was his fourth seizure of his life. These are all supposed seizures corroborated by story from girlfriend in the past as well as tongue biting as well as suspected postictal confusion; however, this author has no direct evidence for what his loss of consciousness and seizure activity looked like at this time. Between the time of his last discharge and today, he notes he has been sleeping okay, eating okay, having no fevers, chills, or headache. He has had no changes in vision. He denies any drug use. He denies any recent or past history to his head. When seen by this author in the emergency room, he had no complaints. PAST MEDICAL HISTORY: Includes suspected seizure approximately week and a half ago. MEDICATIONS: None except for the recently prescribed Keppra, which he has not started taking. ALLERGIES: No known drug allergies. FAMILY HISTORY: Significant for hypertension. No history of seizures, cancer, heart disease, stroke. SOCIAL HISTORY: No tobacco. Last alcoholic drink approximately 1 year prior. Denies illicits. Lives with his girlfriend. Just moved from [place] to [place] approximately 1 week prior. REVIEW OF SYSTEMS: As per HPI. Otherwise, all other systems negative. PHYSICAL EXAMINATION GENERAL: Well-appearing young man, lying flat in bed, interactive, in no apparent distress. VITAL SIGNS: In the emergency room range from systolic 97 to 117, diastolic 67 to 72; heart rate 79, respiratory rate between 20 and 24, T-max 97% degrees Fahrenheit. HEENT: His oropharynx indicates laceration in the lateral aspect of his tongue , otherwise moist mucous membranes. Sclerae are anicteric. NECK: Non-elevated JVD. No cervical or supraclavicular lymphadenopathy. LUNGS: His lungs are clear to auscultation bilaterally. HEART: Regular rate and rhythm. No murmurs, rubs, or gallops. ABDOMEN: Soft, nontender, nondistended. EXTREMITIES: Warm and well perfused without clubbing, cyanosis or edema. He has no skin breakdown. NEUROLOGIC: He is alert and oriented x3. His cranial nerves II through XII are intact. He has 5/5 strength throughout. He has no apparent anxiety, agitation, or depression. DIAGNOSTIC STUDIES/LAB DATA: There are no labs from this visit, however, this morning his lactic acid was 4.1. White blood cell count was 5.1. His urine was benign except for presence of ascorbic acid. His toxicology screen was positive for amphetamines as well as cannabinoids. ASSESSMENT AND PLAN: This is a 22-year-old man, now presenting with his fourth seizure in less than 2 weeks. Urine notable for methamphetamines or amphetamines. 1. Seizures. I discussed with Neurology, to obtain an MRI with and without contrast, check an EEG at this time. The patient received 1000 mg IV Keppra, we will continue with 750 mg twice daily. Seizure precautions, monitor overnight. I suspect discharge home tomorrow if no additional seizures. He will need Social Work consult in order to assist in obtaining medications as the patient has repeated seizures in the absence of medications clearly indicated at this time. 2. Lactic acidosis. We will repeat at this time, if still elevated, will need additional fluid resuscitation. 3. DVT prophylaxis, low risk, ambulate ad-fortino. [id number]/[facility] #: [id number] [facility]
[2018-01-22] MEDS ORDERED: Gadoteridol* (CONTRAST) 279.3 MG/ML 10 ML IV ONE (18:14)
--- NOTE | 2018-01-22 19:18 | CONS ---
AMENDED REPORT TO CORRECT DATE OF CONSULT CONSULTATION NOTE: DATE OF CONSULT: 01/22/18 PATIENT OF: Dr. Esquivel. HISTORY OF PRESENT ILLNESS: This is a 22-year-old man, who is previously healthy, who had a seizure in [place] about a month ago. Then, he re- presented to [facility] on 01/13/18 and had the seizure prior to the visit and he had no warning. He had a CT scan at that time, which was normal and Dr. Castañeda was consulted over the phone and recommended Keppra. He did not fill that and he went home. Then today, he has had the seizure, came in to the ER, and then he went and had another seizure, which apparently all seizures last just a few minutes, but the history is somewhat fake and are apparently generalized, but this is not really known as well. PAST SURGICAL HISTORY: He has had no surgeries. He has had no head traumas. MEDICATIONS: He is on no medications. ALLERGIES: He has no medical allergies. He is allergic to PEANUT OIL and SHELLFISH. SOCIAL HISTORY: He does not drive. No drug, alcohol, or smoking issues. REVIEW OF SYSTEMS: Negative in all 14 spheres. He has recently moved to [place]. PHYSICAL EXAMINATION: He is afebrile with a temperature of 97.0, pulse 72, respirations 16, blood pressure 116/69. He is alert and oriented with normal speech and comprehension. Cranial nerves II through XII were intact. Fundi were benign. Motor exam revealed normal tone and strength, coordination. Sensation intact to light touch. Reflexes 2 and equal with downgoing toes. Chest: Clear. Cardiovascular: Regular rate and rhythm. Abdomen is soft with positive bowel sounds. DIAGNOSTIC STUDIES/LAB DATA: His CT scan was reviewed and it was normal. Labs included normal CBC, normal CMP other than lactate of 4.1. He had normal TSH. UA negative. His EEG showed left frontotemporal sharp waves. IMPRESSION AND PLAN: I discussed with Serafin that he has had new onset of a focal seizure disorder and he needs to be on long-term medicine. I have discussed the risks of even sudden if he has breakthrough seizures. I discussed seizure precautions including high heights and water and he does not drive or operate heavy machinery. He is going to be on Keppra. Dr. Esquivel is loading him and will be on 750 twice a day. He will get an MRI scan with and without contrast. Dr. Escoto is on tomorrow . Thank you for sharing his case. [id number]/[facility] #: [id number] ORIGINAL E-SIGN DATE/TIME: 01/25/18 1600 [facility]
[2018-01-22] MEDS: levETIRAcetam TAB* 500 MG PO SCH (19:56)
[2018-01-23] MEDS: levETIRAcetam TAB* 500 MG PO SCH (09:59)
[2018-01-23 12:22] VITALS: BP 119/60
--- NOTE | 2018-01-23 13:26 | PN ---
PROGRESS NOTE: DATE OF FOLLOWUP: 01/23/18 HISTORY OF PRESENT ILLNESS: Mr. Pina is a 22-year-old gentleman who was brought to the emergency room twice yesterday with seizures in the setting of a seizure in [facility] and a seizure in early January 2018. He has been placed on levetiracetam 750 mg p.o. b.i.d. EEG showed left frontal temporal sharp waves. On today's visit, we reviewed epilepsy risk factors. There is no history of head trauma. No history of trauma. He does not know his milestones, but indicates that he was an average student at school. There were no learning disabilities. He denies any known seizures prior to a month ago and there have been no medications other than vitamins. His urine tox screen showed marijuana , which he indicates he does use. There was also presumed amphetamine, which he is unclear how that could have happened. There is a family history of a younger sister having seizures. PHYSICAL EXAMINATION: On examination, Mr. Pina's temperature was 98.6 degrees Fahrenheit, heart rate was 70, respiratory rate was 18, saturation was 100%, blood pressure was 103/52. He had a regular cardiac rhythm. Lungs were clear to auscultation. There is no evidence of peripheral edema. He was awake, alert , articulate. Had normal language function. Adequate fund of knowledge. He had full extraocular movements with no nystagmus. Full [place] to confrontation. His facial expression, sensation, hearing were equal. Palate was upgoing. Tongue was midline. Sternocleidomastoid and trapezius were 5/5 in strength. There was normal bulk and tone, with no pronator drift. Full strength in the upper and lower extremities with normal [id number] and heel- to-johnson movements. Reflexes were 2+ and symmetric in the upper and lower extremities with the exception of the knees that were hard to obtain. His Romberg was negative. He performed tandem gait without difficulty. He could walk on his heels and his toes. LABORATORY DATA: His lab test from yesterday showed sodium slightly low at 136, his CO2 is 21, his glucose was 102. MEDICATIONS: Include: 1. Acetaminophen 650 mg p.o. q.4 hours p.r.n. severe pain. 2. Levetiracetam 750 mg p.o. b.i.d. IMPRESSION: Mr. Pina is a 22-year-old gentleman with 4 seizures in the last month and an abnormal EEG with left frontal temporal sharp waves and a family history of younger sister with seizures. The repeat seizures with abnormal EEGs is consistent with epilepsy and treatment is recommended. He is tolerating the levetiracetam 750 mg p.o. b.i.d. He is to be discharged on this dose. Will need to have a trough level drawn in the morning prior to his first dose in 3 to 4 weeks. He will follow up with Dr. Gillette in 4 weeks' time at the neurology office at the [facility]. On today's visit, we talked about epilepsy risk factors. We talked about medication, the importance of taking the Keppra every 12 hours, the importance of not missing doses. We talked about different activities that could put him at risk or others if he would have a seizure including, but not limited to driving, being in unprotected heights, working with sharp instrument such as knives, bathing, swimming. He knows to avoid these activities. He does not drive at this time. We talked about [facility]'s policy on driving. He will follow up with Dr. Gillette and further adjustments of the dose will be made accordingly. If he has a seizure in the interim, he is to let us know and return to the emergency room if there are any difficulties. TIME SPENT: Over 30 minutes was spent in direct [id number] patient care with 50% of the time was spent in education and counseling regarding above issues. All questions were answered. [id number]/[facility] #: [id number] ANTWAN
--- NOTE | 2018-01-23 13:50 | DS ---
DISCHARGE SUMMARY: DATE OF ADMISSION: 01/22/18 DATE OF DISCHARGE: 01/23/18 ADMITTING PROVIDER: Rolly Lunsford MD ATTENDING PHYSICIAN: Bry Benedict MD CONSULTING NEUROLOGIST: Heriberto Gillette MD and Aminah Escoto MD PRIMARY CARE PROVIDER: None locally. Formerly resident of [place]. CHIEF COMPLAINT: Fourth seizure in the last 30 days. HISTORY OF PRESENT ILLNESS/HOSPITAL COURSE: Serafin Pina is a 22-year-old male with past medical history of 3 seizures in the last month and cannabis use. This fourth seizure happened in [place] and he did not get any medications from the emergency room at that time. He moved to the [facility] on 01/12/18 and on 01/13/18 had a suspected seizure with biting of his tongue. He was discharged from the emergency room with prescription for Keppra, which he never filled given concerns for cost, lack of insurance and financial constraints. He again returned with reported seizure on the morning of admission, was discharged from the emergency room after he was prescribed Keppra and then discharged, but then again later that day was found by his girlfriend lying on the couch drooling from the mouth and then somehow rolled or fell to the floor, and may have had some uncontrolled motions. He presented again to [facility] and was admitted. He had a brain MRI, which showed no abnormality. He had an EEG, which was abnormal, which showed no active seizures at that time. He was seen by Dr. Fernandez, hospital day #2. He is being discharged with 30-day supply of Keppra 750 mg p.o. b.i.d. in hand. He needs to follow up with Dr. Gillette within 3 to 4 weeks with the Keppra level drawn in the morning (before taking medications that morning). Of note, he attested severe financial constraints and Social Work consult was requested to help try to get the Medicaid application. He of note has had urine toxicology positive for cannabis, both and 01/22/18, 01/22/18 also was positive for amphetamine screen. 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 He does not have a primary care provider currently. DISCHARGE MEDICATIONS: Include Keppra 750 mg p.o. b.i.d. DIET: No restrictions. ACTIVITY: The patient is not cleared for driving or operating heavy machinery or being at unsafe heights. FOLLOWUP: Please follow up with Heriberto Gillette within 3 to 4 weeks with the Brayan mary in the morning beforehand and he is to establish care with the primary care provider and Social Work is working to get him enrolled on Medicaid at the moment. TIME SPENT: Time spent on discharge 35 minutes. [id number]/[facility] #: [id number] ANTWAN
== END 2018-01-23 13:17 | disposition home or self-care (01) ==
LOC: ED 13:50 → MED 15:55
PROVIDERS: ADMIT Internal Medicine; ATTEND Internal Medicine
DX: R56.9 Unspecified convulsions (principal); F12.90 Cannabis use, unspecified, uncomplicated; Z87.891 Personal history of nicotine dependence; R41.0 Disorientation, unspecified
CPT/HCPCS: 36415; 80048; 83605; 96365; 99284; A9270-GY; G0378

== ENCOUNTER 2018-10-23 06:28 | Emergency (ER) | payer SELFPAY ==
[2018-10-23 07:40] LABS: ABS Basophils 0 10^3/ul (0-0.2); ABS Eosinophils 0.1 10^3/ul (0-0.6); ABS Lymphocytes 1.4 10^3/ul (1.0-4.8); ABS Monocytes 0.6 10^3/ul (0-0.8); ABS Neutrophils 6.9 10^3/ul (1.5-7.7); ABS Nucleated RBC 0 10^3/ul; Eosinophil % 1.5 %; Hematocrit 42 % (42-52); Hemoglobin 14.1 g/dl (14.0-18.0); Lymphocyte % 15.8 %; Mean Corpuscular HGB Conc 34 g/dl (31-36); Mean Corpuscular Hemoglobin 31 pg (27-31); Mean Corpuscular Volume 93 fL (80-94); Mean Platelet Volume 8.4 fL (7.4-10.4); Nucleated Red Blood Cells % 0.1; Platelet Count 216 10^3/ul (150-450); Red Blood Count 4.49 10^6/ul (4.00-5.40); Red Cell Distribution Width 14 % (10.5-15); White Blood Count 9.1 10^3/ul (3.5-10.8)
[2018-10-23 07:54] LABS: INR 1.08 (0.77-1.02)
[2018-10-23 08:03] LABS: ALT 17 U/L (7-52); Albumin 4.4 g/dL (3.2-5.2); Albumin/Globulin Ratio 1.5 (1-3); Alkaline Phosphatase 56 U/L (34-104); BUN/Creatinine Ratio 17.8 (8-20); Blood Urea Nitrogen 19 mg/dL (6-24); CO2 Carbon Dioxide 24 mmol/L (22-32); Calcium 9.7 mg/dL (8.6-10.3); Chloride 104 mmol/L (101-111); EGFR Non-African American 84.2 (>60); Glucose 80 mg/dL (70-100); Magnesium 2.5 mg/dL (1.9-2.7); Sodium 137 mmol/L (135-145); Total Protein 7.4 g/dL (6.4-8.9)
[2018-10-23 08:15] LABS: Alcohol < 10 mg/dL (<10)
[2018-10-23 08:20] LABS: Anion Gap 9 mmol/L (2-11); Potassium 4.1 mmol/L (3.5-5.0)
[2018-10-23 08:24] LABS: AST 19 U/L (13-39)
[2018-10-23 08:31] LABS: TSH (Thyroid Stimulating Horm) 0.75 mcIU/mL (0.34-5.60)
[2018-10-23 09:15] LABS: Urine Appearance Cloudy; Urine Bilirubin Negative (Negative); Urine Blood Negative (Negative); Urine Color Yellow; Urine Glucose Negative (Negative); Urine Ketones 1+ (Negative); Urine Nitrite Negative (Negative); Urine Protein Negative (Negative); Urine Specific Gravity 1.018 (1.010-1.030); Urine Urobilinogen Negative (Negative)
[2018-10-23] MEDS ORDERED: Divalproex DR TAB(*) 250 MG PO ONE (09:28)
[2018-10-23 09:43] LABS: Barbiturates Urine Screen None Detected (None Detect); Benzodiazepine Urine Screen None Detected (None Detect); Urine Cannabinoids Screen Presumptive Positive (None Detect)
[2018-10-23 10:34] VITALS: BP 113/66
--- NOTE | 2018-10-23 12:47 | ED ---
Seizure - HPI Summary HPI Summary: Patient presents via EMS status post seizure. He states in the middle of the night he woke up and felt like he needed to vomit so he went to the bathroom but then developed throat tightness which is his prodrome for seizure. He notified his girlfriend who helped him lower himself to the ground. He does not recall any details beyond that other than arriving here by EMS. He admits to some chills but otherwise denies headache, change in vision, chest pain, fever, diarrhea, numbness, tingling, weakness, injuries due to seizure. He reports he's been told when he has these he shakes and can't breathe during this seizure period. EMS crew told nursing staff patient was postictal and sweaty on the scene - also had a little bit of blood on his teeth. Otherwise no further details reported. Nursing reports patient has been alert and oriented without complaints since arrival and was able to self mobilize from stretcher to stretcher. Patient has a history of seizures and was last seen here in January 2018. He was not taking his medication at that time and so regimen was restarted of Keppra. He reports he moved to [place] shortly thereafter and was switched to depakote 500mg BID instead which seems to work well. Last seizure was about 2-3 weeks ago. Reports he's had about 4-5 seizures since last visit last year - about once a month but sometimes will have 2 in a day. Follows with a neurologist in [place] at [facility] who recently referred him for medical marijuana treatment of his seizures as he smokes and states this helps. In the meantime he reports he's been compliant with his Depakote. ypically sees neurologist once a month however at last visit 2 weeks ago was given a 5 month supply of depakote. States he is unsure what triggers his seizures but possibly stress. When inquired about his current stressors he reports "I don't want to talk about it". Asked if he has ever been seen by a counselor he reports no but is open to trying this. States he drinks 1 beer occasionally and last beer was a few days ago. He has not noticed a pattern with drinking alcohol and seizures in the past. Denies smoking cigarettes and or using illicit drugs. He does admit he smokes marijuana and feels this helps his seizures. When asked if he knows what kind he uses he reports "exotics". Denies recent illness, URI symptoms or flulike symptoms and no new foods, beverages or environmental changes other than the fact that he came up from [place] about 2 days ago and has been staying with his "girl". Feels safe at home and no SI or HI reported. - History Of Current Complaint Chief Complaint: EDSeizure Time Seen by Provider: 10/23/18 07:10 Hx Obtained From: Patient - Allergies/Home Medications Allergies/Adverse Reactions: Allergies Allergy/AdvReac Type Severity Reaction Status Date / Time shellfish derived Allergy Severe Swelling Verified 10/23/18 07:06 Of Face,Lips,& Throat peanut oil Allergy Itching Verified 10/23/18 07:06 Home Medications: Home Medications Divalproex Sodium [Depakote] 500 mg PO BID 10/23/18 [History Confirmed 10/23/18] PMH/Surg Hx/FS Hx/Imm Hx Previously Healthy: Yes Endocrine/Hematology History: Denies: Hx Diabetes Cardiovascular History: Denies: Hx Hypertension, Hx Myocardial Infarction, Hx Pacemaker/ICD Respiratory History: Denies: Hx Asthma, Hx Chronic Obstructive Pulmonary Disease (COPD), Hx Cystic Fibrosis History: Denies: Hx Renal Disease Sensory History: Denies: Hx Cataracts, Hx Contacts or Glasses, Hx Deafness, Hx Hearing Aid Opthamlomology History: Denies: Hx Cataracts, Hx Contacts or Glasses Neurological History: Reports: Hx Seizures - on depakote - managed by neuro in [place] Psychiatric History: Denies: Hx Panic Disorder Infectious Disease History: No Infectious Disease History: Denies: Traveled Outside the [place] in Last 30 Days - Family History Known Family History: Positive: Hypertension Negative: Respiratory Disease, Seizure Disorder - Social History Alcohol Use: Occasionally - 1 beer at a time when he does Hx Substance Use: No Substance Use Type: Reports: Marijuana - 1x week Substance Use Comment - Amount & Last Used: + amphetamines in urine at last visit 01/2018 - denies use today Hx Tobacco Use: No Smoking Status (MU): Never Smoked Tobacco Review of Systems Positive: Chills. Negative: Fever, Fatigue Eyes: Negative ENT: Negative Cardiovascular: Negative Respiratory: Negative Gastrointestinal: Negative Genitourinary: Negative Musculoskeletal: Negative Skin: Negative Neurological: Other - seizure Negative: Headache, Weakness, Paresthesia, Numbness, Slurred Speech Psychological: Normal All Other Systems Reviewed And Are Negative: Yes Physical Exam Triage Information Reviewed: Yes Vital Signs On Initial Exam: Initial Vitals Temp Pulse Resp BP Pulse Ox 98.8 F 89 18 126/91 100 10/23/18 06:33 10/23/18 06:33 10/23/18 06:33 10/23/18 06:33 10/23/18 06:33 Vital Signs Reviewed: Yes Appearance: Positive: Well-Appearing, No Pain Distress, Well-Nourished Skin: Positive: Warm, Skin Color Reflects Adequate Perfusion, Dry - no signs of santos injury Head/Face: Positive: Normal Head/Face Inspection Eyes: Positive: Normal, EOMI, KIM - no photophobia, Conjunctiva Clear ENT: Positive: Normal ENT inspection, Hearing grossly normal, Pharynx normal, TMs normal - no hemotympanum. Negative: Nasal congestion, Nasal drainage, Trismus, Muffled voice, Hoarse voice Neck: Positive: Supple, Nontender Respiratory/Lung Sounds: Positive: Clear to Auscultation, Breath Sounds Present. Negative: Rales, Rhonchi, Wheezes Cardiovascular: Positive: Normal, RRR, S1, S2. Negative: Murmur, Rub, Leg Edema Left, Leg Edema Right Abdomen Description: Positive: Nontender, Soft Bowel Sounds: Positive: Present Musculoskeletal: Positive: Normal, Strength/ROM Intact Neurological: Positive: Normal, Sensory/Motor Intact, Alert, Oriented to Person Place, Time, CN Intact II-III Psychiatric: Positive: Other - alert, in good spirits - defensive when answering questions/anxious but consolable and able to be calm - lying on stretcher on side, resting upon entrance - Wallace Coma Scale Best Eye Response: 4 - Spontaneous Best Motor Response: 6 - Obeys Commands Best Verbal Response: 5 - Oriented Coma Scale Total: 15 Diagnostics - Vital Signs Vital Signs Temp Pulse Resp BP Pulse Ox 10/23/18 06:33 98.8 F 89 18 126/91 100 - Laboratory Result Diagrams: 10/23/18 07:30 10/23/18 07:30 Lab Statement: Any lab studies that have been ordered have been reviewed, and results considered in the medical decision making process. Course/Dx - Course Course Of Treatment: Pt reports he's been taking depakote instead of keppra since last spring. Followed by neurology in [place] and is up visiting in [place] the past 2 days - plans to be here less than 1 month so he can go back to [place] to maintain neurology pt status and refill meds. Denies recent identifiable triggers for seizure although when asked, he states "I don't know what triggers them. Stress?" but then reports stress has been "regular, every day life stress" and doesn't want to elaborate. Neuro status: clear. Vitals: stable. Labs: valproic acid level 56 (50-100). Otehrwise unremarkable for acute pathology. ECG: NSR, 70 bpm, no ST elevations - no major change from previous - T wave upright in III where previously inverted. Discussed w/ Dr. Bateman who recommends increase from 500mg BID to 750gm BID and f/u w/ neurology. Pt agrees w/ plan. - Diagnoses Provider Diagnoses: Seizure Discharge - Sign-Out/Discharge Documenting (check all that apply): Patient Departure - Discharge Plan Condition: Stable Disposition: HOME Prescriptions: Divalproex DR TAB(*) [Depakote DR TAB(*)] 250 mg PO BID #60 tab.dr Patient Education Materials: Epilepsy (ED) Referrals: Leon Bateman MD [Medical Doctor] - Additional Instructions: Your dose of Depakote has been increased from 500 mg 2 times a day to 750 mg 2 times a day. Since you already have 500 mg tablets, you may add the additional 250 mg tablets with each dose for a total of 750 mg 2 times a day. It is important that you follow up with your neurologist at [facility] in [place] ([phone]). If you are having trouble making this follow-up appointment, please call the local neurologist who will see you for follow-up. Contact information included here. *If you develop return of seizures, return to ED - Billing Disposition and Condition Condition: STABLE Disposition: Home
== END 2018-10-23 10:33 | disposition home or self-care (01) ==
LOC: ED 06:28
DX: G40.909 Epilepsy, unspecified, not intractable, without status epilepticus (principal)
CPT/HCPCS: 36415; 80053; 80164; 80307; 80320; 81003; 83735; 84443; 85025; 85610; 93005; 99283; A9270-GY; G0480